=== PATIENT | male | born 1955 | race Caucasian/White ===

== ENCOUNTER → 2021-07-06 13:36 | Outpatient (BNVA) | payer MEDICARE, MEDICAID, SELFPAY | PROVIDERS: Visit Provider Internal Medicine | DX: M05.9 Rheumatoid arthritis with rheumatoid factor, unspecified (principal); Z11.59 Encounter for screening for other viral diseases; Z11.1 Encounter for screening for respiratory tuberculosis; M32.9 Systemic lupus erythematosus, unspecified; M79.673 Pain in unspecified foot; Z79.899 Other long term (current) drug therapy; F17.210 Nicotine dependence, cigarettes, uncomplicated | CPT/HCPCS: 36415; 99204 ==

== ENCOUNTER 2021-07-06 14:42 | Outpatient (CLI) | payer MEDICARE, MEDICAID, SELFPAY ==
--- NOTE | 2021-07-06 14:51 | XR_ITS ---
WS: [id number] TECHNIQUE: 2 views of the right hand CLINICAL INFORMATION: M05.9 - Rheumatoid arthritis with rheumatoid factor, unsp... COMPARISON: None. FINDINGS: Proximal erosive changes compatible with history of rheumatoid arthritis involving the radiocarpal deya int and DRUJ. Erosive changes involving the carpal bones and CMC joints. Joint space narrowing first MCP with mild subluxation. Slight erosive changes involving the metatarsal carpal heads. Normal MCP j oints. Small periarticular erosions involving the PIP and DIP joints with preserved joint spaces. Ero sive changes or prior trauma involving the second distal phalangeal tuft. XR/XR hand RT 2V [id number] IMPRESSION: Erosive changes compatible with rheumatoid arthritis as described above.
--- NOTE | 2021-07-06 14:51 | XR_ITS ---
WS: [id number] FOOT LEFT TECHNIQUE: 2 views of the left foot CLINICAL INFORMATION: M25.50 - Pain in unspecified joint COMPARISON: None. FINDINGS: Osteopenia. No acute fractures. Chronic hammertoe deformities. Mild hallux valgus. Normal talus and c alcaneus. Normal metatarsals. Normal tarsal bones. No significant erosive changes. XR/XR foot LT 2V [id number] IMPRESSION: No significant erosive changes.
--- NOTE | 2021-07-06 14:51 | XR_ITS ---
WS: [id number] FOOT RIGHT TECHNIQUE: 2 views of the right foot CLINICAL INFORMATION: M25.50 - Pain in unspecified joint COMPARISON: None. FINDINGS: Hallux valgus. Hammertoe deformities. Joint spaces are relatively well-preserved. No significant eros tata changes. Mild osteopenia. Normal tarsal bones. Normal metatarsals. XR/XR foot RT 2V [id number] IMPRESSION: No significant erosive changes.
--- NOTE | 2021-07-06 14:51 | XR_ITS ---
WS: [id number] CERVICAL SPINE FLEXION EXTENSION TECHNIQUE: 3 views of the cervical spine: lateral neutral, flexion and extension views. CLINICAL INFORMATION: M05.9 - Rheumatoid arthritis with rheumatoid factor, unsp... COMPARISON: None. FINDINGS: Straightening of the normal cervical lordosis. Mild spondylitic changes. Disc space narrowing worse a t C5-C6 and C6-C7. Normal C1-C2 articulation. Slight anterolisthesis C5 on C6. Normal prevertebral so ft tissues. No instability on flexion-extension. Posterior elements are normal. No other significant findings. XR/XR cervical spine fl/ex [id number] IMPRESSION: 1. No instability on flexion-extension. 2. Mild spondylitic changes. 3. Mild disc space narrowing worse at C5-C6 and C6-C7. 4. Slight anterolisthesis C5 on C6.
--- NOTE | 2021-07-06 14:51 | XR_ITS ---
WS: [id number] TECHNIQUE: 2 views of the left hand CLINICAL INFORMATION: M05.9 - Rheumatoid arthritis with rheumatoid factor, unsp... COMPARISON: None. FINDINGS: Erosive changes compatible with rheumatoid arthritis involving the radiocarpal joint and DRUJ. Joint space narrowing at the radiocarpal joint. Slight erosive changes involving the first second and third metacarpal bases. Prior postoperative changes hardware fixation fourth metacarpal. Narrowing of the first MCP joint. MCP joints are otherwise well preserved. IP joints are relatively well-preserved wit h tiny periarticular erosions involving the PIP joints. A few tiny erosions involving the metacarpal heads. XR/XR hand LT 2V [id number] IMPRESSION: 1. Mild erosive changes compatible with rheumatoid arthritis. 2. Prior postoperative changes plate and screw fixation fourth metatarsal shaf t. 3. Joint space narrowing worse at the radiocarpal joint and first MCP joint.
== END 2021-07-06 14:43 | disposition home or self-care (01) ==
PROVIDERS: Visit Provider Internal Medicine
DX: M05.9 Rheumatoid arthritis with rheumatoid factor, unspecified (principal); M25.50 Pain in unspecified joint; Z11.59 Encounter for screening for other viral diseases; Z11.1 Encounter for screening for respiratory tuberculosis; M32.9 Systemic lupus erythematosus, unspecified; M79.673 Pain in unspecified foot; Z79.899 Other long term (current) drug therapy; F17.210 Nicotine dependence, cigarettes, uncomplicated
CPT/HCPCS: 36415; 72040; 73120; 73620; 80053; 85025; 85651; 86140; 86480; 86704; 86803; 87340; 99204

== ENCOUNTER → 2021-08-04 09:31 | Outpatient (BNVA) | payer MEDICARE, MEDICAID, SELFPAY | PROVIDERS: Visit Provider Anesthesiology Pain Medicine | DX: G89.29 Other chronic pain (principal); M54.12 Radiculopathy, cervical region; M48.062 Spinal stenosis, lumbar region with neurogenic claudication; M54.16 Radiculopathy, lumbar region; M79.604 Pain in right leg; M79.605 Pain in left leg | CPT/HCPCS: 73630; 99204 ==

== ENCOUNTER → 2021-08-31 12:14 | Outpatient (BNVA) | payer MEDICARE, MEDICAID, SELFPAY | PROVIDERS: Visit Provider Anesthesiology Pain Medicine | DX: G89.29 Other chronic pain (principal); M54.12 Radiculopathy, cervical region; M54.16 Radiculopathy, lumbar region; M79.604 Pain in right leg; M79.605 Pain in left leg | CPT/HCPCS: 99214 ==

== ENCOUNTER → 2021-11-06 12:48 | Outpatient (BNVA) | payer MEDICARE, MEDICAID, SELFPAY | PROVIDERS: Visit Provider Internal Medicine | DX: M05.9 Rheumatoid arthritis with rheumatoid factor, unspecified (principal); Z79.899 Other long term (current) drug therapy; F17.210 Nicotine dependence, cigarettes, uncomplicated; E78.2 Mixed hyperlipidemia; Z76.89 Persons encountering health services in other specified circumstances; R33.9 Retention of urine, unspecified; N52.9 Male erectile dysfunction, unspecified; M54.16 Radiculopathy, lumbar region; M54.12 Radiculopathy, cervical region | CPT/HCPCS: 80053; 80061; 84153; 85025; 99213; 99214 ==

== ENCOUNTER → 2021-11-09 10:21 | Outpatient (BNVA) | payer MEDICARE, MEDICAID, SELFPAY | PROVIDERS: PCP Family Medicine; Visit Provider Anesthesiology Pain Medicine | DX: G89.29 Other chronic pain (principal); M54.12 Radiculopathy, cervical region; M54.16 Radiculopathy, lumbar region; M79.604 Pain in right leg; M79.605 Pain in left leg; F17.210 Nicotine dependence, cigarettes, uncomplicated | CPT/HCPCS: 99214 ==

== ENCOUNTER → 2021-11-20 14:15 | Outpatient (BNVA) | payer MEDICARE, MEDICAID, SELFPAY | PROVIDERS: PCP Family Medicine; Visit Provider Anesthesiology Pain Medicine | DX: G89.29 Other chronic pain (principal); M54.16 Radiculopathy, lumbar region; M54.2 Cervicalgia; F17.210 Nicotine dependence, cigarettes, uncomplicated | CPT/HCPCS: 64483; 64484; J1100; J3490 ==

== ENCOUNTER → 2021-12-11 11:38 | Outpatient (BNVA) | payer MEDICARE, MEDICAID, SELFPAY | PROVIDERS: PCP Family Medicine; Visit Provider Anesthesiology Pain Medicine | DX: G89.29 Other chronic pain (principal); M54.12 Radiculopathy, cervical region; M54.16 Radiculopathy, lumbar region; M79.604 Pain in right leg; M79.605 Pain in left leg; F17.200 Nicotine dependence, unspecified, uncomplicated | CPT/HCPCS: 99214 ==

== ENCOUNTER 2022-02-07 12:56 | Outpatient (CLI) | payer MEDICARE, MEDICAID, SELFPAY ==
[2022-02-07 13:17] LABS: Erythrocyte Sedimentation Rate 8 mm/hr (0-10)
[2022-02-07 13:19] LABS: Basophils # 0.1 10^3/uL (0.0-0.1); Basophils % 0.7 %; Eosinophils # 0.1 10^3/uL (0.0-0.8); Eosinophils % 1.5 %; Hematocrit 43.9 % (42.0-52.0); Hemoglobin 14.8 g/dL (11.7-16.6); Lymphocytes # 2.3 10^3/uL (0.8-4.8); Lymphocytes % 26.3 %; Mean Corpuscular HGB Conc 33.7 g/dL (30.0-36.0); Mean Platelet Volume 9.8 fL (7.4-10.4); Monocytes # 1.3 10^3/uL (0.2-0.9); Monocytes % 14.6 %; Neutrophils # 4.85 10^3/uL (1.8-7.7); Neutrophils % 56.7 %; Nucleated Red Blood Cells % 0 %; Platelet Count 295 10^3/cmm (130-400); Red Blood Count 4.93 10^6/uL (4.1-5.3); Red Cell Distribution Width 13.2 % (12.1-15.1); White Blood Count 8.6 10^3/uL (4.0-10.0)
[2022-02-07 14:03] LABS: Alanine Aminotransferase 20 U/L (0-41); Albumin Level 4.5 g/dL (3.5-5.2); Alkaline Phosphatase 89 IU/L (40-130); Anion Gap 14.4 (5-19); Aspartate Amino Transferase 23 U/L (0-40); Blood Urea Nitrogen 11 mg/dL (8-23); Calcium 9.6 mg/dL (8.5-10.5); Carbon Dioxide 26 mmol/L (22-29); Chloride 99 mmol/L (98-107); Glomerular Filtration Rate 96.7 mL/min (90-130); Glucose 145 mg/dL (65-115); Osmolality Calculated 284 mOsm/kg (285-295); Potassium 3.4 mmol/L (3.5-5.1); Sodium 136 mmol/L (136-145); Total Bilirubin 0.4 mg/dL (0.15-1.2); Total Protein 7.5 g/dL (6.6-8.7)
== END 2022-02-07 12:57 | disposition home or self-care (01) ==
LOC: LAB 12:59
PROVIDERS: PCP Family Medicine; Visit Provider Internal Medicine
DX: M05.9 Rheumatoid arthritis with rheumatoid factor, unspecified (principal); Z79.899 Other long term (current) drug therapy
CPT/HCPCS: 80053; 85025; 85651; 86140

== ENCOUNTER → 2022-02-19 13:25 | Outpatient (BNVA) | payer MEDICARE, MEDICAID, SELFPAY | PROVIDERS: PCP Family Medicine; Visit Provider Internal Medicine | DX: M05.9 Rheumatoid arthritis with rheumatoid factor, unspecified (principal); Z79.899 Other long term (current) drug therapy; E87.6 Hypokalemia; M79.9 Soft tissue disorder, unspecified; F17.210 Nicotine dependence, cigarettes, uncomplicated | CPT/HCPCS: 99214 ==

== ENCOUNTER → 2022-03-21 12:17 | Outpatient (BNVA) | payer MEDICARE, MEDICAID, SELFPAY | PROVIDERS: PCP Family Medicine; Visit Provider Anesthesiology Pain Medicine | DX: G89.29 Other chronic pain (principal); M54.12 Radiculopathy, cervical region; M54.16 Radiculopathy, lumbar region; M79.604 Pain in right leg; M79.605 Pain in left leg; F17.210 Nicotine dependence, cigarettes, uncomplicated | CPT/HCPCS: 99213 ==

== ENCOUNTER 2022-06-11 13:00 | Outpatient (CLI) | payer MEDICARE, MEDICAID, SELFPAY ==
[2022-06-11 13:51] LABS: Basophils # 0.1 10^3/uL (0.0-0.1); Basophils % 0.5 %; Eosinophils # 0.1 10^3/uL (0.0-0.8); Eosinophils % 0.5 %; Hematocrit 44.2 % (42.0-52.0); Hemoglobin 14.9 g/dL (11.7-16.6); Lymphocytes % 18.1 %; Mean Corpuscular HGB Conc 33.7 g/dL (30.0-36.0); Mean Corpuscular Hemoglobin 29.4 pg (28.0-34.0); Mean Corpuscular Volume 87.4 fl (80-94); Mean Platelet Volume 9.8 fL (7.4-10.4); Monocytes # 1.4 10^3/uL (0.2-0.9); Monocytes % 12.9 %; Neutrophils # 7.48 10^3/uL (1.8-7.7); Neutrophils % 67.7 %; Nucleated Red Blood Cells % 0 %; Platelet Count 275 10^3/cmm (130-400); Red Blood Count 5.06 10^6/uL (4.1-5.3); Red Cell Distribution Width 14.1 % (12.1-15.1)
[2022-06-11 14:16] LABS: Erythrocyte Sedimentation Rate 18 mm/hr (0-10)
[2022-06-11 14:22] LABS: Alanine Aminotransferase 23 U/L (0-41); Albumin Level 4.4 g/dL (3.5-5.2); Alkaline Phosphatase 99 IU/L (40-130); Aspartate Amino Transferase 24 U/L (0-40); Blood Urea Nitrogen 10 mg/dL (8-23); C Reactive Protein 5.5 mg/L (0.0-4.9); Calcium 9.1 mg/dL (8.5-10.5); Carbon Dioxide 24 mmol/L (22-29); Chloride 101 mmol/L (98-107); Globulin 3.2 g/dL (1.3-4.6); Glomerular Filtration Rate 96.4 mL/min (90-130); Glucose 106 mg/dL (65-115); Osmolality Calculated 285 mOsm/kg (285-295); Sodium 138 mmol/L (136-145); Total Bilirubin 0.4 mg/dL (0.15-1.2); Total Protein 7.6 g/dL (6.6-8.7)
--- NOTE | 2022-06-11 15:37 | XR_ITS ---
WS: [id number] RIGHT FOOT: 2 VIEW(S) TECHNIQUE: AP and lateral. HISTORY: M25.50 - Pain in unspecified joint COMPARISON: None available. No acute fracture or dislocation. Normal alignment at the tarsometatarsal junction. Severe hammertoe deformities involving the second t hrough fifth toes. Very minimal hallux valgus. No soft tissue abnormality or bone destruction. XR/XR foot RT 2V [id number] IMPRESSION: 1. No fracture. 2. Severe hammertoe deformities involving the second through fifth toes.
== END 2022-06-11 13:01 | disposition home or self-care (01) ==
LOC: LAB 13:04
PROVIDERS: PCP Family Medicine; Visit Provider Internal Medicine
DX: Z79.899 Other long term (current) drug therapy; M05.9 Rheumatoid arthritis with rheumatoid factor, unspecified; R10.13 Epigastric pain
CPT/HCPCS: 73620; 80053; 85025; 85651; 86140; 99214

== ENCOUNTER → 2022-09-03 09:49 | Outpatient (BNVA) | payer MEDICARE, MEDICAID, SELFPAY | PROVIDERS: PCP Family Medicine; Visit Provider Anesthesiology Pain Medicine | DX: G89.29 Other chronic pain (principal); M54.12 Radiculopathy, cervical region; M54.16 Radiculopathy, lumbar region; M79.604 Pain in right leg; M79.605 Pain in left leg; F17.210 Nicotine dependence, cigarettes, uncomplicated | CPT/HCPCS: 99213 ==

== ENCOUNTER → 2022-10-10 10:46 | Outpatient (BNVA) | payer MEDICARE, MEDICAID, SELFPAY | PROVIDERS: PCP Family Medicine; Visit Provider Internal Medicine | DX: M05.9 Rheumatoid arthritis with rheumatoid factor, unspecified (principal); Z79.899 Other long term (current) drug therapy; K21.9 Gastro-esophageal reflux disease without esophagitis | CPT/HCPCS: 36415; 80053; 85025; 85651; 86140; 99214 ==

== ENCOUNTER → 2023-03-26 10:28 | Outpatient (BNVA) | payer MEDICARE, MEDICAID, SELFPAY | PROVIDERS: PCP Family Medicine; Visit Provider Otolaryngology | DX: H61.93 Disorder of external ear, unspecified, bilateral (principal); H93.13 Tinnitus, bilateral | CPT/HCPCS: 69210; 99202 ==

== ENCOUNTER → 2023-04-01 11:10 | Outpatient (BNVA) | payer MEDICARE, MEDICAID, SELFPAY | PROVIDERS: PCP Family Medicine; Visit Provider Internal Medicine | DX: M06.9 Rheumatoid arthritis, unspecified (principal); I10 Essential (primary) hypertension; Z79.899 Other long term (current) drug therapy; M77.40 Metatarsalgia, unspecified foot | CPT/HCPCS: 36415; 80053; 85025; 85651; 86140; 99214 ==

== ENCOUNTER → 2023-04-22 10:55 | Outpatient (BNVA) | payer MEDICARE, MEDICAID, SELFPAY | PROVIDERS: PCP Family Medicine; Visit Provider Anesthesiology Pain Medicine | DX: G89.29 Other chronic pain (principal); M54.12 Radiculopathy, cervical region; M54.16 Radiculopathy, lumbar region | CPT/HCPCS: 99213; 99214 ==

== ENCOUNTER → 2023-11-12 10:13 | Outpatient (BNVA) | payer MEDICARE, MEDICAID, SELFPAY | PROVIDERS: PCP Family Medicine; Visit Provider Internal Medicine | DX: E78.2 Mixed hyperlipidemia (principal); I10 Essential (primary) hypertension; L82.1 Other seborrheic keratosis; L71.1 Rhinophyma; M06.9 Rheumatoid arthritis, unspecified; Z79.899 Other long term (current) drug therapy | CPT/HCPCS: 36415; 80053; 85025; 99214 ==

== ENCOUNTER → 2024-02-17 12:09 | Outpatient (BNVA) | payer MEDICARE, MEDICAID, SELFPAY | PROVIDERS: PCP Family Medicine; Visit Provider Family Medicine | DX: M06.9 Rheumatoid arthritis, unspecified (principal); Z12.5 Encounter for screening for malignant neoplasm of prostate; I10 Essential (primary) hypertension | CPT/HCPCS: 80053; 82746; 84443; 85025; 99204; G0103 ==

== ENCOUNTER → 2024-04-20 13:05 | Outpatient (BNVA) | payer MEDICARE, SELFPAY | PROVIDERS: PCP Family Medicine; Visit Provider Otolaryngology | DX: H93.13 Tinnitus, bilateral; H61.23 Impacted cerumen, bilateral; H90.0 Conductive hearing loss, bilateral | CPT/HCPCS: 69210; 99212 ==

== ENCOUNTER → 2024-06-25 12:20 | Outpatient (BNVA) | payer MEDICARE, MEDICAID, SELFPAY | PROVIDERS: PCP Family Medicine; Visit Provider Surgery | DX: K21.9 Gastro-esophageal reflux disease without esophagitis (principal); Z12.11 Encounter for screening for malignant neoplasm of colon | CPT/HCPCS: 99204 ==

== ENCOUNTER 2024-07-02 09:39 | Day surgery (SDC) | payer MEDICARE, MEDICAID, SELFPAY ==
[2024-07-02 09:54] VITALS: BP 143/79; PULSE 65; RESP 18; TEMP 36.4; O2SAT 95; BMI 27.8
[2024-07-02] MEDS: sodium chloride 0.9% 1,000 ML 30 ML IV (09:58)
--- NOTE | 2024-07-02 10:44 | P.ANESASSM_ITS ---
Pre-Anesthetic Assessment Height/Weight: Height 1.65 m Weight 75.75 kg Temp Pulse Resp BP Pulse Ox O2 Del Method 97.6 F 65 18 143/79 95 Room Air 07/02/24 09:54 07/02/24 09:54 07/02/24 09:54 07/02/24 09:54 07/02/24 09:54 07/02/24 09:54 Preop Diagnosis: GERD Screening Operation Date: 07/02/24 11:00 Proposed Procedures p EGD 61286, 20836, G0121, K21.9, Z12.11(Not Applicable) - Tristen Conley DO s Colonoscopy(Not Applicable) - Tristen Conley DO Familial anesthetic complications: none Was Beta Samm taken within 24 hours: N/A Last intake: Intake Last Liquid Date 07/01/24 Last Liquid Time 22:00 Last Solid Date 06/30/24 Last Solid Time 14:00 Social Tobacco and No alcohol (Sober of alcohol May 17 2024) 24 hours since tobacco and cannabis. Exam alert and No regular rate & rhythm Airway Submandibular: within normal limits Cervical ROM: within normal limits Mallampati: Class II Dentition: other (no teeth visible.) Pulmonary suspect COPD given respiratory status patient denies CV/HEM Hypertension None reported Hepatic None reported GI Gastroesophageal Reflux Disease denies reflux today previous stomach ulcer. Metabolic Hyperlipidemia [facility] [place] None reported Neuropsych None reported Anesthetic Plan ASA status: 3 Anesthesia: MAC Medications/Allergies Home Medications Medication Instructions Recorded Confirmed Last Taken Type diclofenac sodium 1 % topical gel 4 g topical QID #100 grams 04/06/22 06/30/24 06/30/24 Rx (Voltaren Arthritis Pain) potassium chloride 20 mEq oral 20 meq PO DAILY #5 ea 04/06/22 06/30/24 06/30/24 Rx packet (Klor-Con) aluminum-mag hydroxide-simethicone 10 ml PO Q6H PRN indigestion 06/11/22 06/30/24 06/30/24 Rx 200 mg-200 mg-20 mg/5 mL oral susp #3,000 mL (Maalox Advanced) sildenafil 100 mg tablet 100 mg PO DAILY PRN sexual 02/20/23 06/30/24 Unknown Rx activity #30 tabs hydrocodone 5 mg-acetaminophen 325 1 tab PO Q8H PRN pain 7 days #20 07/23/23 06/30/24 06/30/24 Rx mg tablet tabs valacyclovir 500 mg tablet 500 mg PO BID #14 tabs 07/23/23 06/30/24 06/30/24 Rx sulfasalazine 500 mg tablet 0.5 g PO BID #180 tabs 11/12/23 06/30/24 06/30/24 Rx tofacitinib 11 mg tablet,extended 11 mg PO DAILY #30 tabs 12/10/23 06/30/24 06/30/24 Rx release 24 hr (Xeljanz XR) hydroxychloroquine 200 mg tablet 200 mg PO BID #180 tabs 12/17/23 06/30/24 06/30/24 Rx pantoprazole 40 mg tablet,delayed 40 mg PO BID #60 tabs 05/27/24 06/30/24 06/30/24 Rx release (Protonix) pregabalin 50 mg capsule 50 mg PO .at bedtime #30 caps 05/27/24 06/30/24 06/29/24 Rx aspirin 81 mg chewable tablet 81 mg PO DAILY 06/25/24 06/30/24 06/30/24 History (Alex Chewable Low Dose Aspirin) amlodipine 10 mg tablet 10 mg PO DAILY 06/30/24 06/30/24 06/30/24 History atorvastatin 40 mg tablet 40 mg PO DAILY 06/30/24 06/30/24 06/30/24 History olanzapine 5 mg tablet (Zyprexa) 5 mg PO DAILY 06/30/24 06/30/24 06/30/24 History tamsulosin 0.4 mg capsule 0.4 mg PO DAILY 06/30/24 06/30/24 06/30/24 History Allergies Allergy/AdvReac Type Severity Reaction Status Date / Time No Known Allergies Allergy Verified 06/30/24 10:41 Current Medications Generic Name Dose Route Start Last Admin Trade Name Freq PRN Reason Stop Dose Admin Sodium Chloride 1,000 mls @ 30 mls/hr 07/02/24 10:00 07/02/24 09:58 Sodium Chloride 0.9% IV 07/03/24 09:59 30 mls/hr .Q24H OH Administration PFSH Anesthesia Medical History Rhinophyma Seborrheic keratoses Hypokalemia Cervicalgia Family History Family/Other Hypertension Rheumatoid arthritis Denies family history of Diabetes Lupus Hyperlipidemia Heart attack Cancer Stroke Social History Smoking and tobacco/nicotine status: current every day tobacco/nicotine user cigarettes Alcohol intake: former Substance/Drug Use: never Caregiver/support person: Yes Lives independently: Yes Data Anesthesia Cardiac Studies: No Data to Display
--- NOTE | 2024-07-02 11:56 | W.PM.OPSUD ---
Surgery/Procedure H&P Update DATE OF PROCEDURE: July 02, 2024 DATE H&P PERFORMED: 06/25/24 H&P UPDATE INFORMATION: I have reviewed H&P completed within last 30 days, I have examined patient prior to procedure and No changes to prior documentation PREOP DIAGNOSIS: GERD Screening PLANNED PROCEDURE: Operation Date: 07/02/24 11:00 Proposed Procedures p EGD 35488, 00203, G0121, K21.9, Z12.11(Not Applicable) - DO dea Salinas Colonoscopy(Not Applicable) - Tristen Conley DO
[2024-07-02 12:20] VITALS: BP 91/60; PULSE 71; RESP 21; TEMP 36.3; O2SAT 91
[2024-07-02 12:36] VITALS: BP 104/85; PULSE 71; RESP 20; O2SAT 94
--- NOTE | 2024-07-02 12:55 | ANE.PACU2 ---
Inpatient post-anesthesia follow up: Airway intact: Yes Vital signs: Temperature 97.4 F Pulse Rate 71 Respiratory Rate 20 Blood Pressure 104/85 Pulse Oximetry 94 Oxygen Delivery Me thod Room Air Oxygen Flow Rate 5 Fraction of Inspir ed Oxygen Hydration adequate: Yes Nausea and vomiting: No Pain level: 1 Mental status: Baseline
--- NOTE | 2024-07-02 18:17 | PC.NURSE ---
1213- polyp trap and cold snare used but upon further examination no polyp was found.
== END 2024-07-02 12:55 | disposition home or self-care (01) ==
PROVIDERS: PCP Family Medicine; Visit Provider Surgery
PROC: 0DJ08ZZ Inspection of Upper Intestinal Tract, Via Natural or Artificial Opening Endoscopic (ICD-10-PCS; CPT 43235; principal; 2024-07-02 11:00)
PROC: 0DJD8ZZ Inspection of Lower Intestinal Tract, Via Natural or Artificial Opening Endoscopic (ICD-10-PCS; CPT 45378; 2024-07-02 11:00)
DX: Z12.11 Encounter for screening for malignant neoplasm of colon (principal); K21.9 Gastro-esophageal reflux disease without esophagitis; K29.50 Unspecified chronic gastritis without bleeding; K44.9 Diaphragmatic hernia without obstruction or gangrene; I10 Essential (primary) hypertension; E78.5 Hyperlipidemia, unspecified; F17.210 Nicotine dependence, cigarettes, uncomplicated
CPT/HCPCS: 43239; 88305; 88342; G0121; J2704; J7030

== ENCOUNTER → 2024-07-21 14:17 | Outpatient (BNVA) | payer MEDICARE, MEDICAID, SELFPAY | PROVIDERS: PCP Family Medicine; Visit Provider Nurse Practitioner Family | DX: L40.0 Psoriasis vulgaris (principal); L57.8 Other skin changes due to chronic exposure to nonionizing radiation; D22.5 Melanocytic nevi of trunk; L81.4 Other melanin hyperpigmentation; L82.1 Other seborrheic keratosis; L21.8 Other seborrheic dermatitis; L98.8 Other specified disorders of the skin and subcutaneous tissue | CPT/HCPCS: 99214 ==

== ENCOUNTER → 2024-07-23 10:41 | Outpatient (BNVA) | payer MEDICARE, MEDICAID, SELFPAY | PROVIDERS: PCP Family Medicine; Visit Provider Surgery | DX: Z09 Encounter for follow-up examination after completed treatment for conditions other than malignant neoplasm (principal) | CPT/HCPCS: 99214 ==

== ENCOUNTER → 2024-08-13 11:21 | Outpatient (BNVA) | payer MEDICARE, MEDICAID, SELFPAY | PROVIDERS: PCP Family Medicine; Visit Provider Internal Medicine Cardiovascular Disease | DX: I49.8 Other specified cardiac arrhythmias (principal); R07.9 Chest pain, unspecified; R06.02 Shortness of breath; E78.2 Mixed hyperlipidemia; I10 Essential (primary) hypertension | CPT/HCPCS: 93005; 99214 ==

== ENCOUNTER → 2024-09-01 13:37 | Outpatient (BNVA) | payer MEDICARE, MEDICAID, SELFPAY | PROVIDERS: PCP Family Medicine; Visit Provider Internal Medicine Rheumatology | DX: M05.79 Rheumatoid arthritis with rheumatoid factor of multiple sites without organ or systems involvement (principal); Z79.899 Other long term (current) drug therapy; Z71.85 Encounter for immunization safety counseling; Z11.1 Encounter for screening for respiratory tuberculosis; Z11.59 Encounter for screening for other viral diseases; L97.512 Non-pressure chronic ulcer of other part of right foot with fat layer exposed; I10 Essential (primary) hypertension | CPT/HCPCS: 36415; 80076; 85025; 85651; 86140; 99214 ==

== ENCOUNTER 2024-09-10 14:28 | Outpatient (CLI) | payer MEDICARE, MEDICAID, SELFPAY ==
--- NOTE | 2024-09-10 15:00 | USCV_ITS ---
Scott Stoner Age: 69 Gender: M : 1955 Exam Date: 09/10/2024 15:05 Ordering Phys: Laurent Harman MD ([email or web address]) Technologist: MASOUD [place]am [place] [facility] [place] [facility] [place] Indication: CHEST PAIN BP: 136 / 80 HR: 71 Rhythm: Sinus Technical Quality: Adequate MEASUREMENTS (Male / Female) Normal Values 2D ECHO LV Diastolic Diameter PLAX 4.8 cm 4.2 - 5.9 / 3.9 - 5.3 cm IVS Diastolic Thickness 1.2 cm 0.6 - 1.0 / 0.6 - 0.9 cm IVS Systolic Thickness 1.8 cm LVPW Diastolic Thickness 1.7 cm 0.6 - 1.0 / 0.6 - 0.9 cm LVPW Systolic Thickness 2.4 cm LVOT Diameter 2.0 cm LV Ejection Fraction 2D Teich 67.1 % LV Ejection Fraction MOD 4C 48.8 % LV Ejection Fraction MOD 2C 63.4 % LV Ejection Fraction 2C AL 64.1 % LA Diameter 3.0 cm RA Systolic Volume 4C AL 17.9 ml RA Systolic Volume 4C MOD 17.4 ml LA Sys Volume AL 32.6 cm cubed LA Sys Volume Index AL 17.4 cm cubed/m squared Aorta at Sinotubular Diameter 2.7 cm IVC Diameter 1.6 cm M-MODE LA Ao Ratio MM 1.1 AV Cusp Separation MM 1.7 cm DOPPLER AV Peak Velocity 116.0 cm/s LVOT Peak Velocity 99.0 cm/s AV Area Cont Eq vti 2.7 cm squared AV Area Cont Eq pk 2.8 cm squared MV Peak Velocity 120.0 cm/s MV Area PHT 3.8 cm squared Mitral E to A Ratio 0.9 TR Peak Velocity 102.0 cm/s TR Peak Gradient 4.2 mmHg TR Mean Velocity 78.0 cm/s TR Mean Gradient 2.8 mmHg TR Velocity Time Integral 26.5 cm TV Peak E Velocity 53.0 cm/s Right Atrial Pressure 3.0 mmHg Pulmonary Artery Systolic Pressu 7.2 mmHg PV Peak Velocity 94.0 cm/s RV Ejection Time 0.3 s FINDINGS Left Ventricle Normal left ventricular size and systolic function, EF 63% . No regional wall motion abnormalities. Right Ventricle Normal right ventricular size and systolic function. Right Atrium The right atrium is normal in size. Left Atrium The left atrium is normal in size. Mitral Valve Mild mitral annular calcification. Aortic Valve Thickened aortic valve. Tricuspid Valve No gross abnormalities noted Pulmonic Valve Trace pulmonary valve regurgitation. Pericardium Normal pericardium without effusion. Aorta Normal ascending aorta dimension. IVC The inferior vena cava appears normal. CONCLUSIONS Normal left ventricular size and systolic function, EF 63% . No regional wall motion abnormalities. Mild mitral annular calcification. Thickened aortic valve. Trace pulmonary valve regurgitation. There is no pericardial effusion. There are no intracardiac masses. No similar previous studies are available for comparison. Dr Laurent Harman MD FACC (Electronically Signed) Final Date: 13 September 2024 22:31 S
== END 2024-09-10 14:29 | disposition home or self-care (01) ==
LOC: RAD 14:28
PROVIDERS: PCP Family Medicine; Visit Provider Internal Medicine Cardiovascular Disease
DX: I35.2 Nonrheumatic aortic (valve) stenosis with insufficiency (principal); R06.09 Other forms of dyspnea
CPT/HCPCS: 93306

== ENCOUNTER 2024-09-15 09:30 | Outpatient (CLI) | payer MEDICARE, MEDICAID, SELFPAY ==
[2024-09-15 09:43] VITALS: BMI 25.7
--- NOTE | 2024-09-15 09:45 | NMCV_ITS ---
NM radha perf SPECT r/s* [id number] Scott Stoner Age: 69 Gender: M : 1955 Exam Date: 09/15/2024 10:21 Ordering Phys: Laurent Harman MD ([email or web address]) Technologist: AYAAN Li Exam [facility] Indications: cp STRESS TEST [facility] IMAGE PROTOCOL Rest/Stress 1 Exercise Day Radiopharmaceutical Dose (mCi) Administration Site Administered by Rest: Tc-99m 10.6 IV AYAAN Lucas Sestamibi Stress:Tc-99m 32.4 IV AYAAN Lucas Sestamibi Rest: 15-Sep-2024 60 Discovery 630 Stress: 15-Sep-2024 15 Discovery 630 0.4mg Lexiscan. Radiopharmaceutical was injected at 88 % maximum heart rate. SPECT RESULTS Technical Quality: Good Raw Data Analysis: Normal Image Corrections: No attenuation or motion correction applied Summed Stress Score: 0 Summed Rest Score: 2 Summed Difference Score: 0 PERFUSION FINDINGS Fairly uniform myocardial tracer uptake with no significant Perfusion abnormalities FUNCTIONAL RESULTS (calculated via Gated SPECT) Stress Image LV EF (%): 79 Stress EDV (mL):68 TID: 1.12 Stress ESV (mL):14 FUNCTIONAL FINDINGS: Segmental wall motion analysis revealing no gross wall motion abnormalities IMPRESSIONS 1. Uniform myocardial tracer uptake with no significant perfusion abnormalities 2. LV ejection fraction estimated to be 79%. 3. LV wall motion analysis revealing no gross wall motion abnormalities. 4. Normal LV volume Low probability for coronary ischemia, based on the above findings No similar previous studies are available for comparison Dr Laurent Harman MD FACC (Electronically Signed) Final Date: 15 September 2024 21:57 S
--- NOTE | 2024-09-15 09:45 | ECG_ITS ---
[facility] Test Date: 2024-09-15 Pat Name: Scott Stoner Department: Room: Gender: Male Application Dba: : 1955 Requested By: Laurent Harman Order Number: [id number] Jaja HOLLIDAY: Interpretive Statements Lung unchanged pre/post procedure; Intraprocedure shortess of breath; Symptoms resoled by discharge [email or web address]
[2024-09-15 11:19] VITALS: BP 150/78; PULSE 103
== END 2024-09-15 09:31 | disposition home or self-care (01) ==
PROVIDERS: PCP Family Medicine; Visit Provider Internal Medicine Cardiovascular Disease
DX: Z98.61 Coronary angioplasty status (principal); R06.02 Shortness of breath
CPT/HCPCS: 36415; 78452; 93017; 96374; A9500

== ENCOUNTER 2024-11-12 10:42 | Outpatient (CLI) | payer MEDICARE, SELFPAY ==
[2024-11-12 11:00] LABS: Basophils # 0.1 10^3/uL (0.0-0.1); Basophils % 0.6 %; Eosinophils % 0.4 %; Hematocrit 43.2 % (37-53); Lymphocytes # 2.2 10^3/uL (0.8-4.8); Lymphocytes % 26.9 %; Mean Corpuscular HGB Conc 31.9 g/dL (30-55); Mean Corpuscular Hemoglobin 26.4 pg (27-33); Mean Corpuscular Volume 82.6 fl (82-101); Mean Platelet Volume 9.4 fL (7.4-10.4); Monocytes # 1.1 10^3/uL (0.2-0.9); Monocytes % 13.2 %; Neutrophils # 4.73 10^3/uL (1.8-7.7); Neutrophils % 58.5 %; Nucleated Red Blood Cells % 0 %; Platelet Count 342 10^3/cmm (157-399); Red Blood Count 5.23 10^6/uL (3.85-5.65); Red Cell Distribution Width 15.3 % (12.1-15.1); White Blood Count 8.09 10^3/uL (3.29-11.43)
[2024-11-12 11:12] LABS: Erythrocyte Sedimentation Rate 26 mm/hr (0-10)
[2024-11-12 11:25] LABS: Alanine Aminotransferase 28 U/L (0-41); Albumin Level 4.2 g/dL (3.5-5.2); Alkaline Phosphatase 172 U/L (40-130); Aspartate Amino Transferase 25 U/L (0-40); C Reactive Protein 22.9 mg/L (0.0-4.9); Globulin 4.1 g/dL (1.3-4.6); Total Bilirubin 0.3 mg/dL (0.15-1.2); Total Protein 8.3 g/dL (6.6-8.7)
== END 2024-11-12 10:43 | disposition home or self-care (01) ==
PROVIDERS: PCP Family Medicine; Visit Provider Internal Medicine Rheumatology
DX: Z79.899 Other long term (current) drug therapy (principal); L97.512 Non-pressure chronic ulcer of other part of right foot with fat layer exposed; M06.9 Rheumatoid arthritis, unspecified; I10 Essential (primary) hypertension; F17.210 Nicotine dependence, cigarettes, uncomplicated
CPT/HCPCS: 36415; 80076; 85025; 85651; 86140; 99214

== ENCOUNTER → 2024-12-28 14:31 | Outpatient (BNVA) | payer MEDICARE, MEDICAID, SELFPAY | PROVIDERS: PCP Family Medicine; Visit Provider Family Medicine | DX: I10 Essential (primary) hypertension; E78.2 Mixed hyperlipidemia; Z13.1 Encounter for screening for diabetes mellitus; R73.9 Hyperglycemia, unspecified | CPT/HCPCS: 80053; 80061; 83036 ==

== ENCOUNTER → 2025-01-05 13:35 | Outpatient (BNVA) | payer MEDICARE, MEDICAID, SELFPAY | PROVIDERS: PCP Family Medicine; Visit Provider Nurse Practitioner Family | DX: L40.0 Psoriasis vulgaris (principal); L57.8 Other skin changes due to chronic exposure to nonionizing radiation; B07.8 Other viral warts; L29.89 Other pruritus; R20.8 Other disturbances of skin sensation; L53.8 Other specified erythematous conditions; R58 Hemorrhage, not elsewhere classified; Z78.9 Other specified health status | CPT/HCPCS: 17110; 99213 ==

== ENCOUNTER 2025-01-06 11:27 | Outpatient (CLI) | payer MEDICARE, MEDICAID, SELFPAY ==
--- NOTE | 2025-01-06 12:00 | CT_ITS ---
WS: [id number] LDCT LUNG CANCER SCREENING HISTORY: F17.210 - Nicotine dependence, cigarettes, uncomplicated TECHNIQUE: Axial imaging performed from the apices to 1 cm below the costophrenic angles. Coronal and sagittal reformats are submitted with axial MIP series. All CT scans at [facility] use at least one of these dose optimization techniques: automated exposure control; mA and/or kV adjustment per patient size (includes targeted exams where dose is matched to clinical indication); or iterative reconstruction. DLP: 67.77 mGy.cm DIvol: Mean CTDIvol: 1.20 (mGy) COMPARISON: Abdomen CT 05/18/2024 Diagnostic quality: Satisfactory Lungs: Pulmonary hyperexpansion. Paraseptal and centrilobular emphysema. No pulmonary mass or nodule. RIGHT lower lobe calcified granulomata. Heart: Normal size heart with no pericardial effusion.. Extensive coronary artery calcifications. Other findings: Moderate atherosclerosis throughout the thoracic aorta. Pulmonary artery is mildly dilated. Small mediastinal and hilar lymph nodes. Small hiatal hernia. Lobulated RIGHT adrenal mass. Mass was also noted on the CT of 05/18/2024 without change in size. MRI was recommended at that time. Mild LEFT adrenal gland thickening. Supra renal aortic calcifications. CT/CT lung screening [id number] IMPRESSION: LUNG-RADS: 1S-Negative with Significant Findings FOLLOW UP: 12 Month: Continue annual screening with LDCT OTHER FINDINGS (S MODIFIER): RIGHT adrenal mass. If this adrenal mass has not b een worked up with dedicated MRI or CT adrenal protocol this can be obtained.
== END 2025-01-06 11:28 | disposition home or self-care (01) ==
PROVIDERS: PCP Family Medicine; Visit Provider Family Medicine
DX: Z12.2 Encounter for screening for malignant neoplasm of respiratory organs (principal); F17.210 Nicotine dependence, cigarettes, uncomplicated; R91.8 Other nonspecific abnormal finding of lung field; J43.2 Centrilobular emphysema; J43.8 Other emphysema; J84.10 Pulmonary fibrosis, unspecified; I25.10 Atherosclerotic heart disease of native coronary artery without angina pectoris; I70.0 Atherosclerosis of aorta; I28.1 Aneurysm of pulmonary artery; R59.0 Localized enlarged lymph nodes; K44.9 Diaphragmatic hernia without obstruction or gangrene; R93.89 Abnormal findings on diagnostic imaging of other specified body structures; R93.5 Abnormal findings on diagnostic imaging of other abdominal regions, including retroperitoneum
CPT/HCPCS: 71271

== ENCOUNTER 2025-02-02 12:42 | Outpatient (CLI) | payer MEDICARE, MEDICAID, SELFPAY ==
--- NOTE | 2025-02-02 12:48 | MR_ITS ---
WS: [id number] MRI/MRCP OF THE ABDOMEN WITHOUT GADOLINIUM ENHANCEMENT TECHNIQUE: Coronal T2 Fase BH, Axial T2 Fase BH, Axial T2 FS BH, Zxial 3D Germain BH, Axial DWI BH, 2D MRCP Radial BH, 3D MRCP (Resp), and Axial 3D Dyn BH Post sequences. CLINICAL INFORMATION: E27.8 - Other specified disorders of adrenal gland COMPARISON: CT 05/18/2024 and 01/06/2025 FINDINGS: RIGHT adrenal nodule measuring 1.6 cm. This demonstrates loss of signal on the out of phase imaging compatible with adrenal adenoma. LEFT adrenal gland is normal in appearance. Small esophageal hiatal hernia. Portal vein and splenic vein are patent. Pancreas appears normal. Vascular calcification. Normal renal parenchymal enhancement. No hydronephrosis. Normal spleen. Retroaortic LEFT renal vein. MR/MR adrenals wo/w con [id number] Impression: 1. RIGHT adrenal lesion measuring 1.6 cm with imaging characteristics compatib le with adrenal adenoma. 2. Small esophageal hiatal hernia. 3. No other acute findings.
== END 2025-02-02 12:43 | disposition home or self-care (01) ==
PROVIDERS: PCP Family Medicine; Visit Provider Family Medicine
DX: E27.8 Other specified disorders of adrenal gland (principal); K44.9 Diaphragmatic hernia without obstruction or gangrene; I70.90 Unspecified atherosclerosis; R93.5 Abnormal findings on diagnostic imaging of other abdominal regions, including retroperitoneum
CPT/HCPCS: 74183

== ENCOUNTER → 2025-03-03 12:20 | Outpatient (BNVA) | payer MEDICARE, MEDICAID, SELFPAY | PROVIDERS: PCP Family Medicine; Visit Provider Nurse Practitioner Family | DX: L57.8 Other skin changes due to chronic exposure to nonionizing radiation (principal); B07.8 Other viral warts; L53.8 Other specified erythematous conditions; L29.89 Other pruritus; Z78.9 Other specified health status; L57.0 Actinic keratosis | CPT/HCPCS: 17000; 17110; 99213 ==

== ENCOUNTER → 2025-03-29 13:15 | Outpatient (BNVA) | payer MEDICARE, MEDICAID, SELFPAY | PROVIDERS: PCP Family Medicine; Visit Provider Family Medicine | DX: R35.0 Frequency of micturition (principal); Z12.5 Encounter for screening for malignant neoplasm of prostate | CPT/HCPCS: 80048; 81000; G0103 ==

== ENCOUNTER → 2025-04-05 12:24 | Outpatient (BNVA) | payer MEDICARE, MEDICAID, SELFPAY | PROVIDERS: PCP Family Medicine; Visit Provider Nurse Practitioner Family | DX: L57.8 Other skin changes due to chronic exposure to nonionizing radiation (principal); B07.8 Other viral warts; Z78.9 Other specified health status; L53.8 Other specified erythematous conditions; L29.89 Other pruritus; L57.0 Actinic keratosis | CPT/HCPCS: 17000; 17110; 99213 ==

== ENCOUNTER → 2025-04-27 13:26 | Outpatient (BNVA) | payer MEDICARE, MEDICAID, SELFPAY | PROVIDERS: PCP Family Medicine; Visit Provider Nurse Practitioner Family | DX: L57.0 Actinic keratosis (principal) | CPT/HCPCS: 17110; 99214 ==

== ENCOUNTER → 2025-05-04 13:28 | Outpatient (BNVA) | payer MEDICARE, MEDICAID, SELFPAY | PROVIDERS: PCP Family Medicine; Visit Provider Internal Medicine Rheumatology | DX: Z79.899 Other long term (current) drug therapy (principal); M05.79 Rheumatoid arthritis with rheumatoid factor of multiple sites without organ or systems involvement; Z71.85 Encounter for immunization safety counseling | CPT/HCPCS: 36415; 80076; 82565; 85025; 85651; 86140; 99214 ==

== ENCOUNTER → 2025-06-07 13:56 | Outpatient (BNVA) | payer MEDICARE, MEDICAID, SELFPAY | PROVIDERS: PCP Family Medicine; Visit Provider Nurse Practitioner Family | DX: L57.8 Other skin changes due to chronic exposure to nonionizing radiation (principal); B07.8 Other viral warts; Z78.9 Other specified health status; Z29.89 Encounter for other specified prophylactic measures; L53.8 Other specified erythematous conditions | CPT/HCPCS: 17110; 99213 ==

== ENCOUNTER → 2025-08-06 10:39 | Outpatient (BNVA) | payer MEDICARE, MEDICAID, SELFPAY | PROVIDERS: PCP Family Medicine; Visit Provider Internal Medicine Rheumatology | DX: Z79.899 Other long term (current) drug therapy (principal) | CPT/HCPCS: 80076; 82565; 85025; 86140 ==

== ENCOUNTER → 2025-09-01 13:41 | Outpatient (BNVA) | payer MEDICARE, MEDICAID, SELFPAY | PROVIDERS: PCP Family Medicine; Visit Provider Internal Medicine Cardiovascular Disease | DX: R07.89 Other chest pain (principal); E78.2 Mixed hyperlipidemia; I10 Essential (primary) hypertension; F17.219 Nicotine dependence, cigarettes, with unspecified nicotine-induced disorders | CPT/HCPCS: 99213 ==

== ENCOUNTER → 2025-09-08 14:06 | Outpatient (BNVA) | payer MEDICARE, MEDICAID, SELFPAY | PROVIDERS: PCP Family Medicine; Visit Provider Nurse Practitioner Family | DX: L57.0 Actinic keratosis (principal); B07.8 Other viral warts; L57.8 Other skin changes due to chronic exposure to nonionizing radiation; D48.5 Neoplasm of uncertain behavior of skin | CPT/HCPCS: 11102; 17000; 99213 ==

== ENCOUNTER → 2025-11-01 12:50 | Outpatient (BNVA) | payer MEDICARE, MEDICAID, SELFPAY | PROVIDERS: PCP Family Medicine; Visit Provider Internal Medicine Rheumatology | DX: M05.79 Rheumatoid arthritis with rheumatoid factor of multiple sites without organ or systems involvement (principal); Z79.899 Other long term (current) drug therapy; Z71.85 Encounter for immunization safety counseling; I10 Essential (primary) hypertension | CPT/HCPCS: 36415; 80076; 82565; 85025; 85651; 86140; 99214 ==